=== PATIENT | female | born 1990 | race African-American/Black ===

== ENCOUNTER 2019-01-25 18:27 | Emergency (ER) | payer OTHER ==
[~2019-01-25] VITALS: Ht 167.6 cm; Wt 100.0 kg
[2019-01-25 18:37] VITALS: BP 124/81
== END 2019-01-25 19:45 | disposition left against medical advice (07) ==
LOC: ER 18:27
DX: Z53.21 Procedure and treatment not carried out due to patient leaving prior to being seen by health care provider (principal)
CPT/HCPCS: 93005